=== PATIENT | male | born 1995 | race African-American/Black ===

== ENCOUNTER 2022-03-19 07:40 | Emergency (ER) | payer BC, SELFPAY ==
[2022-03-19 08:15] VITALS: BP 134/85; PULSE 92; RESP 14; TEMP 37; O2SAT 99
[2022-03-19] MEDS: IBUPROFEN 600 MG TABLET PO (08:29)
[2022-03-19] MEDS: ACETAMINOPHEN 325 MG TABLET 650 MG PO (08:30)
--- NOTE | 2022-03-19 08:33 | ED.HA ---
HPI - Headache General Chief Complaint: Headache Stated Complaint: HEADACHE X 3 DAYS/VOMITING/COUGH Time Seen by Provider: 03/19/22 08:33 Source: patient and family History of Present Illness HPI Narrative: Patient presented to the ED with body aches, fever, headache, sore throat, dry cough started 3 days ago,. Intermittent nausea and vomiting. Related Data Allergies Allergy/AdvReac Type Severity Reaction Status Date / Time amoxicillin Allergy Unknown hives Verified 01/08/22 13:24 PENICILLIN Allergy Unknown Uncoded 01/08/22 13:24 Review of Systems Review of Systems: All systems reviewed & are unremarkable except as noted in HPI and below Exam Narrative: General appearance: Well-developed, well-nourished looks ill Skin: Normal color Head: Normocephalic, nontraumatic Eyes: Clear conjunctiva ENT: Oropharynx normal, ears normal, nose normal Neck: Supple, nontender Chest and respiratory: Airway patent, no respiratory distress, no accessory muscle use Heart: Regular rate/rhythm Abdomen: Soft, nontender, no organomegaly, quiet bowel sounds Vascular: Normal peripheral pulses, normal capillary refill. Musculoskeletal: Normal range of motion, nontender back Neurologic: Alert and oriented ?3, [employer] is normal as tested, no gross motor deficit Course Vital Signs Vital signs: Vital Signs Temperature 37.0 C 03/19/22 08:15 Pulse Rate 92 03/19/22 08:15 Respiratory Rate 14 03/19/22 08:15 Blood Pressure 134/85 03/19/22 08:15 Pulse Oximetry 99 03/19/22 08:15 Temperature 37.0 C 03/19/22 08:15 Pulse Rate 92 03/19/22 08:15 Respiratory Rate 14 03/19/22 08:15 Blood Pressure 134/85 03/19/22 08:15 Pulse Oximetry 99 03/19/22 08:15 Oxygen Delivery Room Air 03/19/22 08:35 MDM - Headache Differential Diagnosis Differential diagnosis: Likely other (Upper respiratory viral infection) Lab Data Labs: Lab Results 03/19/22 Range/Units 08:29 Influenza A (RT-PCR) Positive (Negative) Influenza B (RT-PCR) Negative (Negative) SARS-CoV-2 RNA (RT-PCR) Negative Critical Care Time Critical Care Time Critical Care Time: No Discharge Plan Discharge Clinical Impression: Influenza Patient Disposition: Home, Self-Care Condition: Stable Instructions: Antibiotic Form, Influenza (ED) Additional Instructions: Return if symptoms are worsening , call your family physician for appointment, take Tylenol as as needed for aches and pain, continue home medications. Get [id number] TheraFlu Prescriptions: New ondansetron 4 mg tablet,disintegrating 4 mg PO Q4H Qty: 10 0RF Rx Instructions: 1st dose 1-2 hr before radiation Follow-up/Referrals: UNKNOWN,DOCTOR [Primary Care Provider] - Vikas Michael MD [Physician] - 03/24/22 Stand Alone Forms: Work/School Release IP
[2022-03-19 09:12] LABS: Influenza A QL RT-PCR Positive (Negative); Influenza B QL RT-PCR Negative (Negative); SARS-CoV-2 RNA PCR Negative
[2022-03-19 09:53] VITALS: BP 122/83; PULSE 66; RESP 12; O2SAT 99
== END 2022-03-19 09:53 | disposition home or self-care (01) ==
PROVIDERS: Emergency Provider Emergency Medicine
DX: J10.1 Influenza due to other identified influenza virus with other respiratory manifestations (principal); Z20.822 Contact with and (suspected) exposure to COVID-19
CPT/HCPCS: 87636; 99283; A9270

== ENCOUNTER 2022-09-03 12:29 | Emergency (ER) | payer BC, SELFPAY ==
[2022-09-03 12:36] VITALS: BP 146/91; PULSE 57; RESP 16; TEMP 36.6; O2SAT 100
--- NOTE | 2022-09-03 12:45 | ED.URI ---
HPI - URI/Sore Throat General Chief Complaint: Upper Respiratory Infection Stated Complaint: Sore Throat/Cough/Fever Time Seen by Provider: 09/03/22 12:45 Source: patient Mode of arrival: ambulatory Limitations: no limitations History of Present Illness HPI Narrative: Mr. Lemus is a 27-year-old male patient presenting to the clinic today with complaints of sore throat, cough, and fever 2-3 days. He reports he does not know how high his fever has gotten but has felt feverish and has had chills and body aches. States he missed work today and is needing a work note MD elicited complaint: sore throat and nasal congestion Related Data Home Medications Medication Instructions Recorded Confirmed No Home Medications 09/03/22 09/03/22 Allergies Allergy/AdvReac Type Severity Reaction Status Date / Time amoxicillin Allergy Unknown hives Verified 09/03/22 12:32 PENICILLIN Allergy Unknown Other Uncoded 09/03/22 12:32 Review of Systems Review of Systems: Pertinent positives per HPI. Patient denies any rash, headache, visual changes, dizziness, shortness of breath, chest pain, palpitations, nausea, vomiting, diarrhea, constipation, abdominal pain, or any urinary issues. PMFSH Comments At the time of my signature, I reviewed and agree with the nursing past medical, surgical, social, and family history. There is no relevant family history pertinent to the patient complaint. Exam Narrative: General: Well-developed, well nourished, in no apparent distress Head: Normocephalic, atraumatic Eyes: Pupils equally round and reactive to light bilaterally, EOM intact, sclera and conjunctive clear, no discharge, lids normal Ears: TMs intact and clear, ear canals clear, no drainage, grossly hearing normal. Nose: Nares patent, clear nasal discharge, no inflammation, no sinus tenderness. Mouth: Oral pharynx red with mild tonsillar enlargement without lesions or masses, good dentition, MMM. Neck: Supple, trachea midline, no enlargement of anterior or posterior cervical nodes, no thyroid masses or goiter palpable. Cardio: Regular rate and rhythm, s1 and s2 normal, no murmur appreciated. Resp: Clear to auscultation bilaterally, no rhonchi, rales, wheezing or rubs Course Course Emergency Course: Portions of this record may have been created with voice recognition software. Level of Care: Express Care Visit Vital Signs Vital signs: Vital Signs Temperature 36.6 C 09/03/22 12:36 Pulse Rate 57 L 09/03/22 12:36 Respiratory Rate 16 09/03/22 12:36 Blood Pressure 146/91 H 09/03/22 12:36 Pulse Oximetry 100 09/03/22 12:36 Oxygen Delivery Room Air 09/03/22 12:36 Temperature 36.6 C 09/03/22 12:36 Pulse Rate 57 L 09/03/22 12:36 Respiratory Rate 16 09/03/22 12:36 Blood Pressure 146/91 H 09/03/22 12:36 Pulse Oximetry 100 09/03/22 12:36 Oxygen Delivery Room Air 09/03/22 12:36 Vital signs reviewed MDM - URI/Sore Throat MDM Narrative Medical decision making narrative: At the time of visit patient is resting comfortably on the exam table. Strep screen was obtained was negative in the clinic today. Offer to do COVID and influenza testing and patient declined. I suspect patient has URI/pharyngitis/viral syndrome. Supportive measures were discussed with the patient he voiced understanding discharge instructions agrees to treatment plan. Differential Diagnosis Differential diagnosis: Likely upper respiratory infection, otitis media, sinusitis, viral infection, bronchitis, influenza, pharyngitis and other (COVID) Lab Data Labs: Strep Screen Presumptive Negative *(Reference Range: Negative)* Discharge Plan Discharge Clinical Impression: Viral infection Upper respiratory infection Qualifiers: URI type: unspecified URI Qualified Code(s): J06.9 - Acute upper respiratory infection, unspecified Pharyngitis Qualifiers: Pharyngi
== END 2022-09-03 13:08 | disposition home or self-care (01) ==
PROVIDERS: Emergency Provider Nurse Practitioner Family
DX: B34.9 Viral infection, unspecified (principal); J06.9 Acute upper respiratory infection, unspecified; J02.9 Acute pharyngitis, unspecified
CPT/HCPCS: 87081; 87880; 99213; G0463

== ENCOUNTER 2022-10-27 11:53 | Emergency (ER) | payer OTHER, BC, SELFPAY ==
[2022-10-27 12:04] VITALS: BP 140/93; PULSE 62; RESP 16; TEMP 36.7; O2SAT 98
--- NOTE | 2022-10-27 13:24 | ED.BACK ---
HPI - Back Pain/Injury General Chief Complaint: Back Pain/Injury Stated Complaint: back pain Time Seen by Provider: 10/27/22 13:18 Source: patient and RN notes reviewed Mode of arrival: ambulatory Limitations: no limitations History of Present Illness HPI Narrative: Patient presents today complaining of low back pain bilaterally x1 week. 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 Denies radiation of the pain. Denies numbness or tingling in the genitals, legs or feet. Denies loss of bowel or bladder control. Currently rates his pain 5/10, which increases with movement. He has been taking Tylenol with mild relief. Related Data Allergies Allergy/AdvReac Type Severity Reaction Status Date / Time amoxicillin Allergy Unknown hives Verified 10/27/22 11:57 PENICILLIN Allergy Unknown Other Uncoded 10/27/22 11:57 Review of Systems Review of Systems: CONSTITUTIONAL: Denies body aches, fever, chills, or sweats. EYES: Denies visual changes, redness, or discharge. ENT: Denies rhinorrhea, congestion, sore throat, or otalgia. CARDIOVASCULAR: Denies chest pain, palpitations, or edema. RESPIRATORY: Denies cough or dyspnea. GASTROINTESTINAL: Denies abdominal pain, nausea, vomiting, or diarrhea. GENITOURINARY: Denies dysuria or hematuria. SKIN: Denies rash, itching, or wounds. MUSCULOSKELETAL: Denies joint pain, or myalgia.+ low back pain NEUROLOGIC: Denies headache, numbness, tingling, or weakness. PSYCH: Denies depression or anxiety. PMFSH Comments At time of signature, I have reviewed and agree with nursing past medical, surgical, social and family history unless otherwise noted. Please see nursing chart for further information. There is no relevant family history pertinent to the presenting complaint Exam Narrative: GENERAL: Well-appearing, well-nourished, and in no acute distress. HEAD: Normocephalic, atraumatic. EYES: EOMI. No redness or drainage. Conjunctivae normal. ENT: Mucous membranes pink and moist. NECK: Normal AROM. CHEST: No respiratory distress. MUSCULOSKELETAL: Bilateral lumbar paraspinal muscle tenderness. No midline spinal tenderness. No SI joint tenderness bilaterally. Distal sensation intact. Saddle sensation intact. Capillary refill normal. Pedal pulses normal. Dorsiflexion and plantar flexion equal and strong against resistance. EXTREMITIES: Normal range of motion. No edema. SKIN: Warm, dry, no rash. Capillary refill normal. Normal skin turgor. NEURO: No focal deficits. Alert and oriented x3. Gait steady. PSYCH: Normal affect. No signs of depression or anxiety. Course Course Level of Care: Express Care Visit Vital Signs Vital signs: Vital Signs Temperature 98.1 F 10/27/22 12:04 Pulse Rate 62 10/27/22 12:04 Respiratory Rate 16 10/27/22 12:04 Blood Pressure 140/93 H 10/27/22 12:04 Pulse Oximetry 98 10/27/22 12:04 Oxygen Delivery Room Air 10/27/22 12:04 Temperature 98.1 F 10/27/22 12:04 Pulse Rate 62 10/27/22 12:04 Respiratory Rate 16 10/27/22 12:04 Blood Pressure 140/93 H 10/27/22 12:04 Pulse Oximetry 98 10/27/22 12:04 Oxygen Delivery Room Air 10/27/22 12:04 Reviewed. Pt has been instructed to follow up with his PCP regarding his elevated blood pressure today. MDM - Back Pain/Injury MDM Narrative Medical decision making narrative: Patient will be treated for lumbar strain with Flexeril and prednisone. Instructed to take ibuprofen for inflammation. Anticipatory guidance given. Differential Diagnosis Differential diagnosis: Likely lumbar radiculopathy, sciatica and strain of lumbar region Critical Care Time Critical Care Time Critical Care Time: No Discharge Plan Discharge Clinical Impression: Strain of lumbar region Qualifiers: Encounter type: initial encounter Qualified Code(s): S39.012A - Strain of mus
== END 2022-10-27 13:32 | disposition home or self-care (01) ==
PROVIDERS: Emergency Provider Nurse Practitioner; PCP Emergency Medicine
DX: S39.012A Strain of muscle, fascia and tendon of lower back, initial encounter (principal); X50.9XXA Other and unspecified overexertion or strenuous movements or postures, initial encounter
CPT/HCPCS: 99213; G0463

== ENCOUNTER 2022-11-06 16:49 | Emergency (ER) | payer OTHER, BC, SELFPAY ==
--- NOTE | 2022-11-06 16:50 | ED.MALEGU ---
HPI - Male Genitourinary General Chief complaint: Unspecified Stated complaint: Male Problems Time Seen by Provider: 11/06/22 16:50 Source: patient Mode of arrival: ambulatory Limitations: no limitations History of Present Illness HPI Narrative: Mr. Lemus is a 27-year-old male patient presenting to the clinic today with complaints of male problems. He reports he noticed 3 days ago when he was having sex with his girlfriend that when he ejaculated he did not ejaculate as much as normal and it was watery that is not normal for him. He is also reporting some right groin and penile discomfort. No drainage. States he is in a monogamous relationship. His girlfriend is not complaining of any symptoms. He denies any urinary symptoms, fever, or chills Related Data Allergies Allergy/AdvReac Type Severity Reaction Status Date / Time amoxicillin Allergy Unknown hives Verified 11/06/22 17:05 PENICILLIN Allergy Unknown Other Uncoded 11/06/22 17:05 Review of Systems Review of Systems: Pertinent positives per HPI. Patient denies any fever, chills, rash, headache, visual changes, dizziness, cough, runny nose, sore throat, shortness of breath, chest pain, palpitations, nausea, vomiting, diarrhea, constipation, abdominal pain, or any urinary issues. PMFSH Comments At the time of my signature, I reviewed and agree with the nursing past medical, surgical, social, and family history. There is no relevant family history pertinent to the patient complaint. Exam Narrative: General: Well-developed, well nourished, in no apparent distress. Head: Normocephalic, atraumatic. Cardio: Regular rate and rhythm, s1 and s2 normal, no murmur appreciated. Resp: Clear to auscultation bilaterally, no rhonchi, rales, wheezing or rubs. Abdomen: Soft, pliable, bowel sounds present in all quadrants, non-tender to palpation, no organomegly, no CVAT tenderness. : Normal male without corneal adhesions, no penile discharge, urethra mid line, nontender to palpation over the bladder, mild tenderness to the right groin lymph node, no masses or lesions,bilateral testes distended, no discomfort over the testes/vas deferens. Course Course Emergency Course: Portions of this record may have been created with voice recognition software. Level of Care: Express Care Visit Vital Signs Vital signs: Vital Signs Temperature 36.4 C L 11/06/22 17:07 Pulse Rate 70 11/06/22 17:07 Respiratory Rate 16 11/06/22 17:07 Blood Pressure 148/91 H 11/06/22 17:07 Pulse Oximetry 100 11/06/22 17:07 Oxygen Delivery Room Air 11/06/22 17:07 Temperature 36.4 C L 11/06/22 17:07 Pulse Rate 70 11/06/22 17:07 Respiratory Rate 16 11/06/22 17:07 Blood Pressure 148/91 H 11/06/22 17:07 Pulse Oximetry 100 11/06/22 17:07 Oxygen Delivery Room Air 11/06/22 17:07 Vital signs reviewed MDM - Male Genitourinary MDM Narrative Medical decision making narrative: At the time of visit patient is resting comfortably on the exam table. UA dip was completed and was negative- we will send urine for chlamydia, gonorrhea, and Trichomonas testing. Will go ahead and treat patient for STIs as he is requesting treatment in the clinic today. Risk and benefits reviewed with the patient and he voiced understanding. Differential Diagnosis Differential diagnosis: Likely urinary tract infection, urethritis, epididymitis, prostatitis and inguinal hernia Lab Data Labs: Urine Glucose Negative Reference Range: Negative Urine Bilirubin Negative Reference Range: Negative Urine Ketone Negative Reference Range: Negative Urine Specific [place] 1.020 Reference Range:1.001-1.035 Urine Blood
[2022-11-06 17:07] VITALS: BP 148/91; PULSE 70; RESP 16; TEMP 36.4; O2SAT 100
--- NOTE | 2022-11-06 17:16 | PC.NURSE ---
in br to obtain ua spec.
== END 2022-11-06 17:54 | disposition home or self-care (01) ==
LOC: EXPCOLL 16:55
PROVIDERS: Emergency Provider Nurse Practitioner Family; PCP Emergency Medicine
DX: R10.31 Right lower quadrant pain (principal); N48.89 Other specified disorders of penis
CPT/HCPCS: 81003; 87491; 87591; 87661; 99213; G0463

== ENCOUNTER 2022-12-30 18:13 | Emergency (ER) | payer OTHER, BC, SELFPAY ==
[2022-12-30 19:18] VITALS: BP 134/83; PULSE 68; RESP 16; TEMP 36.6; O2SAT 99
--- NOTE | 2022-12-30 20:08 | ED.GENADULT ---
HPI - General Adult General Chief complaint: Nausea/Vomiting/Diarrhea Stated complaint: Vomiting Source: patient Mode of arrival: ambulatory Limitations: no limitations History of Present Illness HPI narrative: patient presents for evaluation of epigastric pain, nausea and vomiting for last 2 days. Reports a burning sensation and some cramping in the epigastric region. He has experienced nausea and diarrhea. His female partner is here with him and states that she has experienced similar symptoms and was actually evaluated here yesterday for her symptoms. He has tried TUMS and states that the medication helps briefly. He reports a sore throat. Denies chest pain, cough and shortness of breath. He consumes a half a beer 2 days per week. He smokes marijuana. He does vape. Related Data Home Medications Medication Instructions Recorded Confirmed amlodipine 10 mg tablet mg 12/30/22 hydrochlorothiazide 25 mg tablet mg 12/30/22 Allergies Allergy/AdvReac Type Severity Reaction Status Date / Time amoxicillin Allergy Unknown hives Verified 12/30/22 19:20 Penicillins Allergy Hives Verified 12/30/22 20:24 Review of Systems Review of Systems: CONSTITUTIONAL: Denies fever, chills, or sweats. EYES: Denies visual changes, redness, or discharge. ENT: Reports sore throat. Denies rhinorrhea, congestion, or otalgia. CARDIOVASCULAR: Denies chest pain, palpitations, or edema. RESPIRATORY: Denies cough or dyspnea. GASTROINTESTINAL: Reports epigastric pain, nausea and diarrhea. Denies vomiting. GENITOURINARY: Denies dysuria or hematuria. SKIN: Denies rash or itching. MUSCULOSKELETAL: Denies back pain, joint pain, or myalgia. NEUROLOGIC: Denies headache, numbness, dizziness, or weakness. PSYCHIATRIC: Denies anxiety or depression. [facility] Past Medical History Medical History Heart murmur Surgical History Surgical History No pertinent past surgical history Family History Family History Mother Family history non-contributory Social History Social History Smoking status: Current every day smoker Tobacco type: e-cigarettes/vaping Alcohol intake: current Alcohol use details: 1/2 beer two days per week Substance use: current Substance use type: marijuana Gender identity (if verbalized by the patient): Male Sexual Orientation (if Verbalized by the Patient): Straight or Heterosexual Spiritual care concerns: No Exam Narrative: GENERAL: Well-appearing, well-nourished, and in no acute distress. HEAD: Normocephalic, atraumatic. EYES: PERRLA and EOMI. ENT: Nares clear, no rhinorrhea or epistaxis. Mucous membranes moist. bilateral tonsillar enlargement with mild erythema. No exudate. Uvula is midline.. Bilateral TMs pearly schmidt nonbulging NECK: Supple. No adenopathy or masses. No carotid bruits or JVD CHEST: Clear to auscultation. No respiratory distress. No wheezes rales or rhonchi HEART: Regular rate and rhythm. No murmur heard. Normal peripheral pulses. ABDOMEN: Soft, nontender, nondistended, normal active bowel sounds. EXTREMITIES: Normal range of motion. No edema. SKIN: Warm, dry, no rash. NEURO: No focal deficits. Alert and oriented x3. PSYCH: Normal mood and affect. Course Course Emergency Course: This is a 27-year-old male who presented for evaluation of GI symptoms consistent with his female partners. He did report a sore throat and strep was obtained as was influenza. Influenza and strep were both negative. Will discharge with Zofran, Cepacol, Pepcid. Follow a bland diet. Follow up with primary provider. Go to the emergency department for worsening symptoms. Patient in agreement with plan of care. Level of Care: Express Care Visit Vital S
== END 2022-12-30 20:33 | disposition home or self-care (01) ==
PROVIDERS: Emergency Provider Nurse Practitioner
DX: K29.70 Gastritis, unspecified, without bleeding (principal); J02.9 Acute pharyngitis, unspecified; F17.219 Nicotine dependence, cigarettes, with unspecified nicotine-induced disorders; Z79.899 Other long term (current) drug therapy
CPT/HCPCS: 87081; 87804; 87880; 99213; G0463

== ENCOUNTER 2023-01-15 11:02 | Emergency (ER) | payer OTHER, BC, SELFPAY ==
--- NOTE | ~2023-01-15 | XR_ITS ---
EXAMINATION: XR abdomen obstructive series DATE: 01/15/2023 11:33 INDICATION: Abdomen pain with diarrhea TECHNIQUE: Supine and upright views of the abdomen. FINDINGS: No prior studies for comparison. The visualized lung parenchyma is normal.. There is a nonobstructive bowel gas pattern. Gas and stool are seen throughout the colon to the level of the rectum. There is no free air. IMPRESSION: 1. No acute abdominal abnormality. Reviewed, dictated and finalized at location L.
--- NOTE | 2023-01-15 11:05 | ED.ABDPAIN ---
HPI - Abdominal Pain General Chief Complaint: Abdominal Pain Stated Complaint: Abdominal Pain Time Seen by Provider: 01/15/23 11:20 Source: patient Mode of arrival: ambulatory Limitations: no limitations History of Present Illness HPI narrative: Elisha is a 27-year-old male patient presenting to the clinic today with complaints of generalized abdominal pain, nausea, and diarrhea. He reports that symptoms started to days ago. Ate some bad [place] food on Thursday and symptoms started on Thursday. He denies any fever or chills. States he is having some incontinence of stools. Related Data Home Medications Medication Instructions Recorded Confirmed amlodipine 10 mg tablet 10 mg PO DAILY 12/30/22 01/15/23 hydrochlorothiazide 25 mg tablet 25 mg PO DAILY 12/30/22 01/15/23 Allergies Allergy/AdvReac Type Severity Reaction Status Date / Time amoxicillin Allergy Unknown hives Verified 01/15/23 11:12 Penicillins Allergy Hives Verified 01/15/23 11:12 Review of Systems Review of Systems: Pertinent positives per HPI. Patient denies any fever, chills, rash, headache, visual changes, dizziness, cough, runny nose, sore throat, shortness of breath, chest pain, palpitations, nausea, vomiting, diarrhea, constipation, abdominal pain, or any urinary issues. [facility] Past Medical History Medical History Heart murmur Surgical History Surgical History No pertinent past surgical history Family History Family History Mother Family history non-contributory Social History Social History Smoking status: Current every day smoker Tobacco type: e-cigarettes/vaping Alcohol intake: current Alcohol use details: 1/2 beer two days per week Substance use: current Substance use type: marijuana Gender identity (if verbalized by the patient): Male Sexual Orientation (if Verbalized by the Patient): Straight or Heterosexual Spiritual care concerns: No Comments At the time of my signature, I reviewed and agree with the nursing past medical, surgical, social, and family history. There is no relevant family history pertinent to the patient complaint. Exam Narrative: General: Well-developed, well nourished, in no apparent distress. Head: Normocephalic, atraumatic. Cardio: Regular rate and rhythm, s1 and s2 normal, no murmur appreciated. Resp: Clear to auscultation bilaterally, no rhonchi, rales, wheezing or rubs. Abdomen: Soft, pliable, bowel sounds present in all quadrants, generalized tender to palpation, no organomegly, no CVAT tenderness. Course Course Emergency Course: Portions of this record may have been created with voice recognition software. Level of Care: Express Care Visit Vital Signs Vital signs: Vital signs reviewed MDM - Abdominal Pain MDM Narrative Medical decision making narrative: At the time of visit patient is resting comfortably on the exam table. Obstructive series x-ray was performed due to patient's incontinence. X-rays negative for any sign of constipation, mass, or obstruction. I suspect patient has gastroenteritis. Supportive measures were discussed with the patient he voiced understanding discharge instructions agrees to treatment plan. Differential Diagnosis Differential diagnosis: Likely abdominal pain, acute appendicitis, calculus of kidney, constipation, diverticulitis, gastroenteritis, pancreatitis and small bowel obstruction Imaging Data Radiologist's impression: ITS Impressions Abdomen X-Ray 01/15/23 11:47 IMPRESSION: 1. No acute abdominal abnormality. Discharge Plan Discharge Clinical Impression: Gastroenteritis Patient Disposition: Home, Self-Care Condition: Stable Instructions: Antibiotic Form, Gastroent
[2023-01-15 11:12] VITALS: BP 121/90; PULSE 67; RESP 16; TEMP 36.9; O2SAT 99
[2023-01-15 11:15] VITALS: BP 121/90; PULSE 67; RESP 16; TEMP 36.9; O2SAT 99
== END 2023-01-15 12:06 | disposition home or self-care (01) ==
PROVIDERS: Emergency Provider Nurse Practitioner Family
DX: K52.9 Noninfective gastroenteritis and colitis, unspecified (principal); F17.219 Nicotine dependence, cigarettes, with unspecified nicotine-induced disorders; Z79.899 Other long term (current) drug therapy
CPT/HCPCS: 74019; 99213; G0463

== ENCOUNTER 2023-02-27 11:30 | Emergency (ER) | payer OTHER, BC, SELFPAY ==
[2023-02-27 11:40] VITALS: BP 125/76; PULSE 53; RESP 14; TEMP 36.3; O2SAT 99
--- NOTE | 2023-02-27 11:47 | ED.LOWEXIN ---
HPI - Extremity Injury (Lower) General Chief Complaint: Extremity Injury, Lower Stated Complaint: Left Leg Pain Time Seen by Provider: 02/27/23 11:36 Source: patient Mode of arrival: ambulatory Limitations: no limitations History of Present Illness HPI Narrative: Miky is a 28-year-old male patient presenting to the clinic today with complaints of left lower leg pain. He reports he was participating and MMA training yesterday and someone fell on to his left lower extremity. He reports pain and some mild swelling. Pain is worse with ambulation/bearing weight. Has a swollen knotted area to the left anterior lower leg Related Data Home Medications Medication Instructions Recorded Confirmed amlodipine 10 mg tablet 10 mg PO DAILY 12/30/22 02/27/23 hydrochlorothiazide 25 mg tablet 25 mg PO DAILY 12/30/22 02/27/23 Allergies Allergy/AdvReac Type Severity Reaction Status Date / Time amoxicillin Allergy Unknown hives Verified 02/27/23 11:38 Penicillins Allergy Hives Verified 02/27/23 11:38 Review of Systems Review of Systems: Pertinent positives per HPI. Patient denies any fever, chills, rash, headache, visual changes, dizziness, cough, runny nose, sore throat, shortness of breath, chest pain, palpitations, nausea, vomiting, diarrhea, constipation, abdominal pain, or any urinary issues. [facility] Past Medical History Medical History Heart murmur Surgical History Surgical History No pertinent past surgical history Family History Family History Mother Family history non-contributory Social History Social History Smoking status: Current every day smoker Tobacco type: e-cigarettes/vaping Alcohol intake: current Alcohol use details: 1/2 beer two days per week Substance use: current Substance use type: marijuana Gender identity (if verbalized by the patient): Male Sexual Orientation (if Verbalized by the Patient): Straight or Heterosexual Spiritual care concerns: No Comments At the time of my signature, I reviewed and agree with the nursing past medical, surgical, social, and family history. There is no relevant family history pertinent to the patient complaint. Exam Narrative: General: Well-developed, well nourished, in no apparent distress Head: Normocephalic, atraumatic. Cardio: Regular rate and rhythm, s1 and s2 normal, no murmur appreciated. Resp: Clear to auscultation bilaterally, no rhonchi, rales, wheezing or rubs. Musculoskeletal: No deformity, tender to palpation to the left lower leg with mild swelling and knotted area noted, tender to palpate, grossly normal range of motion, muscle strength strong and equal, peripheral pulse strong, no edema, no cyanosis, normal gait and station Course Course Emergency Course: Portions of this record may have been created with voice recognition software. Level of Care: Express Care Visit Vital Signs Vital signs: Vital Signs Temperature 36.3 C L 02/27/23 11:40 Pulse Rate 53 L 02/27/23 11:40 Respiratory Rate 14 02/27/23 11:40 Blood Pressure 125/76 02/27/23 11:40 Pulse Oximetry 99 02/27/23 11:40 Oxygen Delivery Room Air 02/27/23 11:40 Temperature 36.3 C L 02/27/23 11:40 Pulse Rate 53 L 02/27/23 11:40 Respiratory Rate 14 02/27/23 11:40 Blood Pressure 125/76 02/27/23 11:40 Pulse Oximetry 99 02/27/23 11:40 Oxygen Delivery Room Air 02/27/23 11:40 Vital signs reviewed MDM - Extremity Injury (Lower) MDM Narrative Medical decision making narrative: At the time of visit patient is resting comfortably on the exam table. Offered x-ray and patient declined at this time. Patient would like work note. i suspect patient has a leg contusion to the left lower extremity. [facility]
== END 2023-02-27 11:59 | disposition home or self-care (01) ==
PROVIDERS: Emergency Provider Nurse Practitioner Family; PCP Emergency Medicine
DX: S80.12XA Contusion of left lower leg, initial encounter (principal); W50.0XXA Accidental hit or strike by another person, initial encounter; Y93.75 Activity, martial arts; R01.1 Cardiac murmur, unspecified; F17.290 Nicotine dependence, other tobacco product, uncomplicated
CPT/HCPCS: 99212; G0463

== ENCOUNTER 2023-06-13 15:14 | Emergency (ER) | payer OTHER, SELFPAY ==
[2023-06-13 15:24] VITALS: BP 143/92; PULSE 55; RESP 16; TEMP 36.3; O2SAT 99
[2023-06-13 15:25] VITALS: BP 143/92; PULSE 55; RESP 16; TEMP 36.3; O2SAT 99
--- NOTE | 2023-06-13 15:39 | ED.NAVMDI ---
HPI - Nausea/Vomiting/Diarrhea General Chief complaint: Nausea/Vomiting/Diarrhea Stated complaint: Vomiting Time Seen by Provider: 06/13/23 15:40 Source: patient Mode of arrival: ambulatory Limitations: no limitations History of Present Illness HPI Narrative: 28-year-old male presents with complaint of nausea, vomiting, diarrhea, fatigue and body aches starting last night. Patient reports that he has had 3 episodes of diarrhea and has vomited 4 times. Was able to keep down crackers but unable to keep down water. Afebrile. Denies abdominal pain. All systems reviewed and negative except as noted above. Related Data Allergies Allergy/AdvReac Type Severity Reaction Status Date / Time amoxicillin Allergy Unknown hives Verified 02/27/23 11:38 Penicillins Allergy Hives Verified 02/27/23 11:38 Review of Systems Review of Systems: CONSTITUTIONAL: Denies fever, chills, or sweats. EYES: Denies visual changes, redness, or discharge. ENT: Denies rhinorrhea, congestion, sore throat, or otalgia. CARDIOVASCULAR: Denies chest pain, palpitations, or edema. RESPIRATORY: Denies cough or dyspnea. GASTROINTESTINAL: Denies abdominal pain . Reports nausea, vomiting, or diarrhea. GENITOURINARY: Denies dysuria or hematuria. SKIN: Denies rash or itching. MUSCULOSKELETAL: Denies back pain, joint pain. Reports myalgia. NEUROLOGIC: Denies headache, numbness, or weakness. PSYCHIATRIC: Denies anxiety or depression. All other systems reviewed are negative, except as documented in HPI. [facility] Past Medical History Medical History Heart murmur Surgical History Surgical History No pertinent past surgical history Family History Family History Mother Family history non-contributory Social History Social History Smoking status: Current every day smoker Tobacco type: e-cigarettes/vaping Alcohol intake: current Alcohol use details: 1/2 beer two days per week Substance use: current Substance use type: marijuana Gender identity (if verbalized by the patient): Male Sexual Orientation (if Verbalized by the Patient): Straight or Heterosexual Spiritual care concerns: No Comments At time of signature, agree with nursing past medical, surgical, social and family history. There is no relevant family history pertinent to the presenting complaint. Exam Narrative: GENERAL: This is a well-nourished, well-developed patient, in no apparent distress. HEAD: normocephalic, atraumatic. EYES: PERRL. Sclera clear/white. Vision is grossly intact. EARS: External ears normal NOSE: External nose normal NECK: Neck supple, non-tender without lymphadenopathy, masses or thyromegaly. CARDIOVASCULAR: Regular rate and rhythm without murmurs, gallops, or rubs. RESPIRATORY: Clear to auscultation. Breath sounds equal bilaterally. No wheezes, rales, or rhonchi. GASTROINTESTINAL: Abdomen soft, non-tender, nondistended. Bowel sounds are active. No hepato-splenomegaly, or palpable masses. No guarding. SKIN: warm, Dry, intact with no suspicious lesions or rash, good texture and turgor. NEURO: awake, alert, and oriented to person, place and time. There were no obvious focal neurologic abnormalities. EXTREMITIES: No joint tenderness, effusion, or edema noted. Course Course Level of Care: Express Care Visit Vital Signs Vital signs: Vital Signs Temperature 36.3 C L 06/13/23 15:24 Pulse Rate 55 L 06/13/23 15:24 Respiratory Rate 16 06/13/23 15:24 Blood Pressure 143/92 H 06/13/23 15:24 Pulse Oximetry 99 06/13/23 15:24 Oxygen Delivery Room Air 06/13/23 15:24 Temperature 36.3 C L 06/13/23 15:25 Pulse Rate 55 L 06/13/23 15:25 Respiratory Rate 16 06/13/23 15:25 Blood Pressure 143/92 H 05/22
== END 2023-06-13 15:55 | disposition home or self-care (01) ==
PROVIDERS: Emergency Provider Nurse Practitioner Family; PCP Emergency Medicine
DX: A08.4 Viral intestinal infection, unspecified (principal); F17.290 Nicotine dependence, other tobacco product, uncomplicated; R01.1 Cardiac murmur, unspecified
CPT/HCPCS: 99213; G0463

== ENCOUNTER 2023-08-11 05:22 | Emergency (ER) | payer MEDICAID, SELFPAY ==
[2023-08-11 05:22] VITALS: BP 156/82; PULSE 57; RESP 16; TEMP 36.6; O2SAT 100
--- NOTE | 2023-08-11 05:36 | ED.GENADULT ---
HPI - General Adult General Chief complaint: Dental/Oral Stated complaint: tooth ache Time Seen by Provider: 08/11/23 05:28 History of Present Illness HPI narrative: Patient is a 28-year-old gentleman who presents emergency department with chief complaint of pain in the wisdom teeth on the left side. The patient reports that he was seen in the dentist had plaques great and reports that started having pain in the lower post back molar on his left mandible patient states that he was referred to an oral surgeon but is not on antibiotics and Tylenol was not helping his pain. The patient denies fever denies trismus Related Data Allergies Allergy/AdvReac Type Severity Reaction Status Date / Time amoxicillin Allergy Unknown hives Verified 08/11/23 05:29 Penicillins Allergy Hives Verified 08/11/23 05:29 Review of Systems Review of Systems: A 10 system review of systems was completed on the patient and is negative except for what is stated in the HPI. Nursing and ancillary documentation was reviewed. PMFSH Past Medical History Medical History Heart murmur Surgical History Surgical History No pertinent past surgical history Family History Family History Mother Family history non-contributory Social History Social History Smoking status: Current every day smoker Tobacco type: e-cigarettes/vaping Alcohol intake: current Alcohol use details: 1/2 beer two days per week Substance use: current Substance use type: marijuana Gender identity (if verbalized by the patient): Male Sexual Orientation (if Verbalized by the Patient): Straight or Heterosexual Spiritual care concerns: No Exam Narrative: GENERAL: Well-appearing, well-nourished, and in no acute distress. HEAD: Normocephalic, atraumatic. EYES: PERRLA and EOMI. ENT: Nares clear, no rhinorrhea or epistaxis. Mucous membranes moist. There is an impacted wisdom tooth on the left lower mandible there is tenderness to palpation in the area NECK: Supple. CHEST: Clear to auscultation. No respiratory distress. HEART: Regular rate and rhythm. No murmur heard. Normal peripheral pulses. ABDOMEN: Soft, nontender, nondistended, normal active bowel sounds. EXTREMITIES: Normal range of motion. No edema. SKIN: Warm, dry, no rash. NEURO: No focal deficits. Alert and oriented x3. PSYCH: Normal mood and affect. Course Vital Signs Vital signs: Vital Signs Temperature 36.6 C 08/11/23 05:22 Pulse Rate 57 L 08/11/23 05:22 Respiratory Rate 16 08/11/23 05:22 Blood Pressure 156/82 H 08/11/23 05:22 Pulse Oximetry 100 08/11/23 05:22 Oxygen Delivery Room Air 08/11/23 05:22 Temperature 36.6 C 08/11/23 05:22 Pulse Rate 57 L 08/11/23 05:22 Respiratory Rate 16 08/11/23 05:22 Blood Pressure 156/82 H 08/11/23 05:22 Pulse Oximetry 100 08/11/23 05:22 Oxygen Delivery Room Air 08/11/23 05:22 Procedures Nerve Block Nerve Block 1: Local Anesthetic: lidocaine 1% Amount of anesthesia used (mL): 2 Side: left Intraoral Nerve Block: supraperiosteal Procedure Successful: Yes Patient Tolerated Procedure: well Complications: none Medical Decision Making MDM Narrative Medical decision making narrative: Differential diagnosis mode otalgia, dental caries, dental abscess Vital Signs Vital Signs: Vital Signs Temperature 36.6 C 08/11/23 05:22 Pulse Rate 57 L 08/11/23 05:22 Respiratory Rate 16 08/11/23 05:22 Blood Pressure 156/82 H 08/11/23 05:22 Pulse Oximetry 100 08/11/23 05:22 Oxygen Delivery Room Air 08/11/23 05:22 Temperature 36.6 C 08/11/23 05:22 Pulse Rate 57 L 08/11/23 05:22 Respiratory Rate 16
[2023-08-11] MEDS: CLINDAMYCIN HCL 150 MG CAP 300 MG PO (05:49)
[2023-08-11] MEDS: HYDROcodone/acetaminophen (*CRX) 5-325 MG TABLET 1 TAB PO (05:50)
== END 2023-08-11 06:00 | disposition home or self-care (01) ==
LOC: ANHED 05:40
PROVIDERS: Emergency Provider Emergency Medicine
DX: K02.9 Dental caries, unspecified (principal); F17.210 Nicotine dependence, cigarettes, uncomplicated
CPT/HCPCS: 41800; 99283; A9270

== ENCOUNTER 2023-08-14 06:22 | Emergency (ER) | payer MEDICAID, SELFPAY ==
[2023-08-14 06:27] VITALS: BP 145/90; PULSE 62; RESP 18; TEMP 36.4; O2SAT 100
[2023-08-14 06:34] VITALS: BP 145/90; PULSE 62; RESP 18; TEMP 36.4; O2SAT 100
--- NOTE | 2023-08-14 07:22 | ED.DENTAL ---
HPI - Dental/Oral General Chief complaint: Dental/Oral Stated complaint: dental Time Seen by Provider: 08/14/23 07:00 Source: patient Mode of arrival: ambulatory Limitations: no limitations History of Present Illness HPI Narrative: patient presents with left lower wisdom tooth pain. he has a broken tooth at this position. He was seen on 08/11/2023 for the same and at that time was prescribed clindamycin, a 10 day course. He reports taking this. He has been using [id number] ibuprofen, taking 3 200 mg tablets every 6 hours. No fevers. he has an appointment to see a dentist at the end of the month but the pain is causing sleep Disruption. Related Data Allergies Allergy/AdvReac Type Severity Reaction Status Date / Time amoxicillin Allergy Unknown hives Verified 08/14/23 06:30 Penicillins Allergy Hives Verified 08/14/23 06:30 PMFSH Past Medical History Medical History Heart murmur Surgical History Surgical History No pertinent past surgical history Family History Family History Mother Family history non-contributory Social History Social History Smoking status: Current every day smoker Tobacco type: e-cigarettes/vaping Alcohol intake: current Alcohol use details: 1/2 beer two days per week Substance use: current Substance use type: marijuana Gender identity (if verbalized by the patient): Male Sexual Orientation (if Verbalized by the Patient): Straight or Heterosexual Spiritual care concerns: No Exam Narrative: GENERAL: Well-appearing, well-nourished, and in no acute distress. HEAD: Normocephalic, atraumatic. no facial swelling or induration EYES: Non injected, non icteric ENT: Nares clear, no rhinorrhea or epistaxis. tooth 17. Is broken. Tender to percussion. Mild tenderness to palpation of gingiva/ gums surrounding this area but otherwise without appreciable abscess. No fluctuance or induration buccal mucosa or the rest of the cheek. NECK: Supple. CHEST: Speaking full sentences. No respiratory distress. HEART: Regular rate and rhythm. . ABDOMEN: Soft, nondistended. EXTREMITIES: Normal range of motion. No edema. SKIN: Warm, dry, no rash. NEURO: No focal deficits. Alert and oriented x3. PSYCH: Normal mood and affect. Course Vital Signs Vital signs: Vital Signs Temperature 97.5 F L 08/14/23 06:27 Pulse Rate 62 08/14/23 06:27 Respiratory Rate 18 08/14/23 06:27 Blood Pressure 145/90 H 08/14/23 06:27 Pulse Oximetry 100 08/14/23 06:27 Oxygen Delivery Room Air 08/14/23 06:27 Temperature 97.5 F L 08/14/23 06:34 Pulse Rate 62 08/14/23 06:34 Respiratory Rate 18 08/14/23 06:34 Blood Pressure 145/90 H 08/14/23 06:34 Pulse Oximetry 100 08/14/23 06:34 Oxygen Delivery Room Air 08/14/23 06:27 Procedures Nerve Block Nerve Block 1: Nerve block date: 08/14/23 Nerve block time: 07:48 Time out performed: Yes Local Anesthetic: lidocaine 1% Amount of anesthesia used (mL): 5 Side: left Intraoral Nerve Block: inferior alveolar Procedure Successful: Yes Patient Tolerated Procedure: well Complications: none MDM - Dental/Oral MDM Narrative Medical decision making narrative: Patient presents with tooth pain. seen for the same 3 days ago and prescribed antibiotics which he has been taking In the emergency department he is afebrile with vital signs notable for mild hypertension. physical exam is reassuring without appreciable swelling or abscess is dental zan broken tooth at position 17. Patient is advised that can add acetaminophen to his pain regimen ibuprofen currently. He will also be short course narcotic medication the dis
[2023-08-14] MEDS: HYDROcodone/acetaminophen (*CRX) 5-325 MG TABLET 1 TAB PO (07:41)
[2023-08-14] MEDS: ACETAMINOPHEN 325 MG TABLET 650 MG PO (07:42)
== END 2023-08-14 08:13 | disposition home or self-care (01) ==
PROVIDERS: Emergency Provider Student in an Organized Health Care Education/Training Program
DX: S02.5XXA Fracture of tooth (traumatic), initial encounter for closed fracture (principal); K08.89 Other specified disorders of teeth and supporting structures; F17.290 Nicotine dependence, other tobacco product, uncomplicated
CPT/HCPCS: 64999; 99283; A9270

== ENCOUNTER 2024-05-04 13:35 | Emergency (ER) | payer SELFPAY ==
--- NOTE | ~2024-05-04 | XR_ITS ---
EXAMINATION: XR chest 2V 05/04/2024 14:12 INDICATION: Chest pain PROCEDURE: 2 view chest COMPARISON: 04/27/2024 FINDINGS: The lungs are clear. The cardiomediastinal silhouette is within normal limits. There are no pleural effusions. There is no pneumothorax suspected. IMPRESSION: 1: NO ACUTE CARDIOPULMONARY DISEASE. Reviewed, dictated and finalized at location A. [facility] MDM DEVELOPER
[2024-05-04 13:37] VITALS: BP 128/90; PULSE 80; RESP 17; TEMP 36.4; O2SAT 100
--- NOTE | 2024-05-04 13:37 | ECG_ITS ---
Test Date: 2024-05-04 13:44:14 Measurements Intervals [place] Rate: 79 P: 51 FL: 155 QRS: -37 QRSD: 102 T: -29 QT: 354 QTc: 407 Interpretive Statements SINUS RHYTHM MARKED LEFT AXIS DEVIATION [QRS AXIS < -30] INCOMPLETE RIGHT BUNDLE BRANCH BLOCK [90+ ms QRS DURATION, TERMINAL R IN V1/V2, 40+ ms S IN I/aVL/V4/V5/V6] MODERATE VOLTAGE CRITERIA FOR LVH, CONSIDER NORMAL VARIANT [MEETS CRITERIA IN ONE OF: R(aVL), S(V1), R(V5), R(V5/V6)+S(V1)] T-WAVE ABNORMALITY IN THE INFEROLATERAL LEADS Compared to ECG 04/27/2024 09:58:34 IMPROVEMENT IN T-WAVE ABNORMALITY IN THE INFERIOR LEADS, T WAVE ABNORMALITY NOW PRESENT IN THE LATERAL LEADS Electronically Signed On 05-04-2024 14:39:05 FEED RESEARCH TECHNICIAN by Christine Houser M.D.
--- NOTE | 2024-05-04 13:40 | ED_ITS ---
HPI - Chest Pain General Chief Complaint: Chest Pain <Yesenia iRco PA-C - Last Filed: 05/04/24 13:42> Stated Complaint: chest pain <Yesenia Rico PA-C - Last Filed: 05/04/24 13:42> Time Seen by Provider: 05/04/24 13:59 <Yesenia Rico PA-C - Last Filed: 05/04/24 13:42> Focused HPI: 29-year-old male with reported history of ?fatty heart valve? presents to the emergency department for chest pain that started just prior to arrival. Patient states he was sleeping when he woke up with chest pain this started on the left side of the chest, radiated across the chest wall and down his right arm with associated shortness of breath, palpitations, sweating and nausea. States the pain lasted approximately 15 minutes and is now resolved. States this has been happening more frequently over the past few weeks. He states he follows with a tentering machine off bearer at [place] for his ?fatty heart valve?. He most recently the stress test a few years ago which was unremarkable. States he is scheduled for his upcoming stress test in 1 week. No abdominal pain, cough or congestion, fever, lower extremity edema, hemoptysis, history of VTE. Denies smoking. States his mother from cardiac history. GENERAL: Well-appearing, well-nourished, and in no acute distress. HEAD: Normocephalic, atraumatic. CHEST: Clear to auscultation. ?No respiratory distress. HEART: Regular rate and rhythm.? NEURO: ?Alert and oriented x3. Patient screened in triage and initial orders placed.? ?Additional care and disposition to be based upon?diagnostic testing and treatment. <Yesenia Rico PA-C - Last Filed: 05/04/24 13:42> Source: patient <eJovanny Pike MD - Last Filed: 05/04/24 17:48> Mode of arrival: EMS <Jeovanny Pike MD - Last Filed: 05/04/24 17:48> Limitations: no limitations <Jeovanny Pike MD - Last Filed: 05/04/24 17:48> History of Present Illness HPI narrative: 29-year-old with a history of heart murmur, possible valve prolapse and fatty valve complains of sudden onset of chest pain. Patient states that he woke up with the pain radiating into his left arm then across his chest into his right arm. Patient states that he is scheduled for stress test next wk in [place] . He endorses Dr. Joya as his tentering machine off bearer . He denies any shortness of breath. However by the time he got to the ER his pain is much resolved stated the pain lasted for 15 minutes or so. No previous history of CAD. <Jeovanny Pike MD - Last Filed: 05/04/24 17:48> MD complaint: chest pain <Jeovanny Pike MD - Last Filed: 05/04/24 17:48> Onset (ago): hour(s) (1) <Jeovanny Pike MD - Last Filed: 05/04/24 17:48> Onset: during rest <Jeovanny Pike MD - Last Filed: 05/04/24 17:48> Pain location: left chest <Jeovanny Pike MD - Last Filed: 05/04/24 17:48> Pain radiation: right arm and left arm <Jeovanny Pike MD - Last Filed: 05/04/24 17:48> Severity: moderate <Jeovanny Pike MD - Last Filed: 05/04/24 17:48> Quality: aching <Jeovanny Pike MD - Last Filed: 05/04/24 17:48> Relieving factors: nothing <Jeovanny Pike MD - Last Filed: 05/04/24 17:48> Exacerbating factors: nothing <Jeovanny Pike MD - Last Filed: 05/04/24 17:48> Treatment prior to arrival: none <Jeovanny Pike MD - Last Filed: 05/04/24 17:48> Risk Factors Coronary artery disease risk factors: none <MD Varsha Diaz Last Filed: 05/04/24 17:48> Related Data Home Medications: Home Medications ?Medication ?Instructions ?Recorded ?Confirmed ?Last Taken ?Type hydrochlorothiazide 25 mg tablet 25 mg PO DAILY 04/27/24 04/27/24 Unknown History lisinopril 20 mg tablet 20 mg PO DAILY 04/27/24 04/27/24 Unknown History <Yesenia Rico PA-C - Last Filed: 05/04/24 13:42> Allergies/Adverse Reactions: Allergies Allergy/AdvReac Type Severity Reaction Status Date / Time amoxicillin Allergy Unknown hives Verified 05/04/24 13:36 Penicillins Allergy Hives Verified 05/04/24 13:36 <Yesenia Rico PA-C - Last Filed: 05/04/24 13:42> Review of Systems 2 Review of Systems: All systems reviewed & are unremarkable except as noted in HPI and below <Jeovanny Pike MD - Last Filed: 05/04/24 17:48> Constitutional: Constitutional: Reports no additional constitutional complaints <Jeovanny Pike MD - Last Filed: 05/04/24 17:48> Eyes: Eyes: Reports no additional eye complaints <Jeovanny Pike MD - Last Filed: 05/04/24 17:48> ENT: Reports system reviewed and no additional complaints, except as documented <Jeovanny Pike MD - Last Filed: 05/04/24 17:48> Cardiovascular: Cardiovascular: Reports as per HPI and Reports no additional cardiovascular complaints <Jeovanny Pike MD - Last Filed: 05/04/24 17:48> Respiratory: Respiratory: Reports no additional respiratory complaints < Jeovanny Pike MD - Last Filed: 05/04/24 17:48> Musculoskeletal: Musculoskeletal: Reports no additional musculoskeletal complaints <Jeovanny Pike MD - Last Filed: 05/04/24 17:48> Integumentary/Breasts: Skin/Breast: Reports system reviewed and no additional complaints, except as docu <Jeovanny Pike MD - Last Filed: 05/04/24 17:48> PMFSH Past Medical History Medical History: Medical History Heart murmur <Yesenia Rico PA-C - Last Filed: 05/04/24 13:42> Surgical History Surgical History: Surgical History No pertinent past surgical history <Yesenia Rico PA-C - Last Filed: 05/04/24 13:42> Family History Family History: Family History Mother Family history non-contributory <Yesenia Rico PA-C - Last Filed: 05/04/24 13:42> Social History Social History: Social History Smoking status: Current every day smoker Tobacco type: e-cigarettes/vaping Alcohol intake: current Alcohol use details: 1/2 beer two days per week Substance use: current Substance use type: marijuana Gender identity (if verbalized by the patient): Male Sexual Orientation (if Verbalized by the Patient): Straight or Heterosexual Spiritual care concerns: No <Yesenia Rico PA-C - Last Filed: 05/04/24 13:42> Exam 2 Narrative: GENERAL: Well-appearing, well-nourished, and in no acute distress. HEAD: Normocephalic, atraumatic. EYES: PERRLA and EOMI. ENT: Nares clear, no rhinorrhea or epistaxis. Mucous membranes moist. NECK: Supple. CHEST: Clear to auscultation. No respiratory distress. HEART: Regular rate and rhythm. No murmur heard. Normal peripheral pulses. ABDOMEN: Soft, nontender, nondistended, normal active bowel sounds. EXTREMITIES: Normal range of motion. No edema. SKIN: Warm, dry, no rash. NEURO: No focal deficits. Alert and oriented x3. PSYCH: Normal mood and affect. <Jeovanny Pike MD - Last Filed: 05/04/24 17:48> Course Course Emergency Course: Patient had no further episodes of chest pain while he was here in the ER. He was comfortably resting with his girlfriend on his bed. I did inform him about the lab work, EKG findings. Recommended him to follow up with his tentering machine off bearer. <Jeovanny Pike MD - Last Filed: 05/04/24 17:48> Vital Signs Vital signs: Vital Signs Temperature 36.4 C 05/04/24 13:37 Pulse Rate 80 05/04/24 13:37 Respiratory Rate 17 05/04/24 13:37 Blood Pressure 128/90 05/04/24 13:37 Pulse Oximetry 100 05/04/24 13:37 Oxygen Delivery Room Air 05/04/24 13:37 Temperature 36.6 C 05/04/24 16:55 Pulse Rate 68 05/04/24 16:55 Respiratory Rate 16 05/04/24 16:55 Blood Pressure 126/80 05/04/24 16:55 Pulse Oximetry 100 05/04/24 16:55 Oxygen Delivery Room Air 05/04/24 15:11 <Yesenia Rico PA-C - Last Filed: 05/04/24 13:42> Vital Signs Temperature 36.4 C 05/04/24 13:37 Pulse Rate 80 05/04/24 13:37 Respiratory Rate 17 05/04/24 13:37 Blood Pressure 128/90 05/04/24 13:37 Pulse Oximetry 100 05/04/24 13:37 Oxygen Delivery Room Air 05/04/24 13:37 Temperature 36.6 C 05/04/24 16:55 Pulse Rate 68 05/04/24 16:55 Respiratory Rate 16 05/04/24 16:55 Blood Pressure 126/80 05/04/24 16:55 Pulse Oximetry 100 05/04/24 16:55 Oxygen Delivery Room Air 05/04/24 15:11 <Jeovanny Pike MD - Last Filed: 05/04/24 17:48> MDM - Chest Pain Differential Diagnosis Differential diagnosis: Likely pneumothorax, stable angina, atypical chest pain and costochondritis <Jeovanny Pike MD - Last Filed: 05/04/24 17:48> Medical Records Data Attestation: I reviewed the patient's medical records. <Jeovanny Pike MD - Last Filed: 05/04/24 17:48> Lab Data Attestation: I reviewed the patient's lab results. <Jeovanny Pike MD - Last Filed: 05/04/24 17:48> Result diagrams: 05/04/24 13:51 05/04/24 13:51 <Yesenia Rico PA-C - Last Filed: 05/04/24 13:42> Labs: Lab Results 05/04/24 05/04/24 05/04/24 Range/Units 13:51 13:51 16:28 WBC 6.7 (4.5-10.0) K/mm3 RBC 5.03 (4.6-6.20) M/mm3 Hgb 15.8 (14.0-18.0) g/dL Hct 45.2 (42.0-52.0) % MCV 89.9 (80-100) fl MCH 31.4 (26-34) pg MCHC 35.0 (32-36) g/dl RDW 12.5 (11.5-14.5) % Plt Count 264 (150-375) k/mm3 MPV 9.1 (7.4-10.4) fl Immature Gran % (Auto) 0.0 (0-0.5) % Neut % (Auto) 30.6 L (45.5-73.1) % Lymph % (Auto) 57.7 H (18.3-44.2) % [place] % (Auto) 8.6 H (2.6-8.5) % Eos % (Auto) 2.1 (0-4.4) % Baso % (Auto) 1.0 (0.2-1.2) % Lymph # (Auto) 3.89 H (0.9-3.2) K/mm3 [place] # (Auto) 0.6 (0.1-0.6) K/mm3 Eos # (Auto) 0.1 (0-0.3) K/mm3 Baso # (Auto) 0.1 (0.0-0.1) K/mm3 Abs Immat Gran (auto) 0.00 (0.00-0.031) K/mm3 Absolute Neuts (auto) 2.1 (1.3-6.7) K/mm3 Absolute Nucleated RBC 0.000 (0.0-0.012) K/mm3 Nucleated RBC % 0.0 (0.0-0.2) % PT 13.2 (11.1-14.7) Seconds INR 1.0 APTT 27.5 (22.3-36.8) Seconds Sodium 137 (137-145) mmol/L Potassium 3.7 (3.4-5.0) mmol/L Chloride 104 (98-107) mmol/L Carbon Dioxide 21 L (22-30) mmol/L Anion Gap 12 (4-12) mmol/L BUN 12 (9-20) mg/dL Creatinine 1.26 (0.7-1.3) mg/dL Estim Creat Clear Calc 100 ml/min Estimated GFR > 60 (59 - ) Glucose 116 H (65-110) mg/dL Calcium 9.7 (8.4-10.2) mg/dL Total Bilirubin 1.1 (0.2-1.3) mg/dL AST 32 (17-59) U/L ALT 22 (6-50) U/L Alkaline Phosphatase 67 (38-126) U/L Troponin I < 0.012 < 0.012 (0.000-0.034) ng/mL NT-Pro-B Natriuret Pep < 20 Cancelled (19.9-100) pg/mL Total Protein 8.0 (6.3-8.2) g/dL Albumin 4.8 (3.5-5.1) g/dL Lipase 68 (23-300) U/L <Yesenia Rico PA-C - Last Filed: 05/04/24 13:42> Lab Results 05/04/24 05/04/24 05/04/24 Range/Units 13:51 13:51 16:28 WBC 6.7 (4.5-10.0) K/mm3 RBC 5.03 (4.6-6.20) M/mm3 Hgb 15.8 (14.0-18.0) g/dL Hct 45.2 (42.0-52.0) % MCV 89.9 (80-100) fl MCH 31.4 (26-34) pg MCHC 35.0 (32-36) g/dl RDW 12.5 (11.5-14.5) % Plt Count 264 (150-375) k/mm3 MPV 9.1 (7.4-10.4) fl Immature Gran % (Auto) 0.0 (0-0.5) % Neut % (Auto) 30.6 L (45.5-73.1) % Lymph % (Auto) 57.7 H (18.3-44.2) % [place] % (Auto) 8.6 H (2.6-8.5) % Eos % (Auto) 2.1 (0-4.4) % Baso % (Auto) 1.0 (0.2-1.2) % Lymph # (Auto) 3.89 H (0.9-3.2) K/mm3 [place] # (Auto) 0.6 (0.1-0.6) K/mm3 Eos # (Auto) 0.1 (0-0.3) K/mm3 Baso # (Auto) 0.1 (0.0-0.1) K/mm3 Abs Immat Gran (auto) 0.00 (0.00-0.031) K/mm3 Absolute Neuts (auto) 2.1 (1.3-6.7) K/mm3 Absolute Nucleated RBC 0.000 (0.0-0.012) K/mm3 Nucleated RBC % 0.0 (0.0-0.2) % PT 13.2 (11.1-14.7) Seconds INR 1.0 APTT 27.5 (22.3-36.8) Seconds Sodium 137 (137-145) mmol/L Potassium 3.7 (3.4-5.0) mmol/L Chloride 104 (98-107) mmol/L Carbon Dioxide 21 L (22-30) mmol/L Anion Gap 12 (4-12) mmol/L BUN 12 (9-20) mg/dL Creatinine 1.26 (0.7-1.3) mg/dL Estim Creat Clear Calc 100 ml/min Estimated GFR > 60 (59 - ) Glucose 116 H (65-110) mg/dL Calcium 9.7 (8.4-10.2) mg/dL Total Bilirubin 1.1 (0.2-1.3) mg/dL AST 32 (17-59) U/L ALT 22 (6-50) U/L Alkaline Phosphatase 67 (38-126) U/L Troponin I < 0.012 < 0.012 (0.000-0.034) ng/mL NT-Pro-B Natriuret Pep < 20 Cancelled (19.9-100) pg/mL Total Protein 8.0 (6.3-8.2) g/dL Albumin 4.8 (3.5-5.1) g/dL Lipase 68 (23-300) U/L <Jeovanny Pike MD - Last Filed: 05/04/24 17:48> Imaging Data Radiologist's impression: ITS Impressions Chest X-Ray 05/04/24 14:19 IMPRESSION: 1: NO ACUTE CARDIOPULMONARY DISEASE. <Jeovanny Pike MD - Last Filed: 05/04/24 17:48> ECG Data EKG #1: ECG completion date: 05/04/24 <Jeovanny Pike MD - Last Filed: 05/04/24 17:48> ECG completion time: 13:44 <Jeovanny Pike MD - Last Filed: 05/04/24 17:48> EKG Interpretation: normal rate (79), sinus rhythm, no ST changes, left axis and other (Incomplete right bundle LVH by voltage criteria) <Jeovanny Pike MD - Last Filed: 05/04/24 17:48> EKG #2: ECG completion date: 05/04/24 <Jeovanny Pike MD - Last Filed: 05/04/24 17:48> ECG completion time: 16:31 <Jeovanny Pike MD - Last Filed: 05/04/24 17:48> EKG Interpretation: normal rate (63), sinus rhythm, no ST changes and no acute changes < Jeovanny Pike MD - Last Filed: 05/04/24 17:48> Discharge Plan Discharge Clinical Impression: Chest pain Qualifiers: Chest pain type: unspecified Qualified Code(s): R07.9 - Chest pain, unspecified <Yesenia Rico PA-C - Last Filed: 05/04/24 13:42> Patient Disposition: Home, Self-Care <Yesenia Rico PA-C - Last Filed: 05/04/24 13:42> Condition: Stable <Yesenia Rico PA-C - Last Filed: 05/04/24 13:42> Instructions: Chest Pain (ED) <Yesenia Rico PA-C - Last Filed: 05/04/24 13:42> Patient Language: [place] Citizen <Yesenia Rico PA-C - Last Filed: 05/04/24 13:42> Prescriptions: No Action ondansetron 4 mg tablet,disintegrating 4 mg PO Q8H PRN (Reason: nausea and vomiting) Qty: 12 0RF clindamycin HCl 300 mg capsule 300 mg PO Q6H 10 Days Qty: 40 0RF acetaminophen 500 mg capsule 1,000 mg PO Q6H PRN (Reason: pain) Qty: 20 0RF hydrocodone-acetaminophen 5-325 mg tablet 1 tablet PO Q8H PRN (Reason: pain) Qty: 10 0RF hydrocodone-acetaminophen 5-325 mg tablet 1 tablet PO Q8H PRN (Reason: pain) Qty: 10 0RF hydrochlorothiazide 25 mg tablet 25 mg PO DAILY lisinopril 20 mg tablet 20 mg PO DAILY <Yesenia Rico PA-C - Last Filed: 05/04/24 13:42> Follow-up/Referrals: UNKNOWN,DOCTOR [Primary Care Provider] - Vikas Michael MD [Physician] - <Yesenia Rico PA-C - Last Filed: 05/04/24 13:42>
[2024-05-04 14:00] LABS: Basophils Absolute Auto 0.1 K/mm3 (0.0-0.1); Eosinophils Absolute Auto 0.1 K/mm3 (0-0.3); Eosinophils Percent Auto 2.1 % (0-4.4); Hematocrit 45.2 % (42.0-52.0); Hemoglobin 15.8 g/dL (14.0-18.0); Lymphocytes Absolute Auto 3.89 K/mm3 (0.9-3.2); Lymphocytes Percent Auto 57.7 % (18.3-44.2); Mean Corpuscular Hemoglobin 31.4 pg (26-34); Mean Corpuscular Volume 89.9 fl (80-100); Mean Platelet Volume 9.1 fl (7.4-10.4); Monocytes Absolute Auto 0.6 K/mm3 (0.1-0.6); Monocytes Percent Auto 8.6 % (2.6-8.5); Neutrophils Absolute Auto 2.1 K/mm3 (1.3-6.7); Neutrophils Percent Auto 30.6 % (45.5-73.1); Platelet Count Result 264 k/mm3 (150-375); Red Blood Count 5.03 M/mm3 (4.6-6.20); Red Cell Distribution Width 12.5 % (11.5-14.5); White Blood Count 6.7 K/mm3 (4.5-10.0)
[2024-05-04 14:11] LABS: Prothrombin Time 13.2 Seconds (11.1-14.7)
[2024-05-04 14:12] LABS: Partial Thromboplastin Time 27.5 Seconds (22.3-36.8)
[2024-05-04 14:15] VITALS: BP 126/80; PULSE 66; RESP 16; TEMP 36.6; O2SAT 100
[2024-05-04 14:15] LABS: Alanine Aminotransferase 22 U/L (6-50); Albumin Level 4.8 g/dL (3.5-5.1); Alkaline Phosphatase 67 U/L (38-126); Anion Gap 12 mmol/L (4-12); Aspartate Amino Transferase 32 U/L (17-59); Bilirubin,Total 1.1 mg/dL (0.2-1.3); Blood Urea Nitrogen 12 mg/dL (9-20); Calcium 9.7 mg/dL (8.4-10.2); Carbon Dioxide 21 mmol/L (22-30); Chloride 104 mmol/L (98-107); Estimated CRCL calculation 100 ml/min; Estimated Glomerular Filt Rate > 60; Glucose 116 mg/dL (65-110); Lipase 68 U/L (23-300); Potassium 3.7 mmol/L (3.4-5.0); Sodium 137 mmol/L (137-145)
[2024-05-04 14:26] LABS: NT Pro B Type Natriuretic Pept < 20 pg/mL (19.9-100); Troponin I < 0.012 ng/mL (0.000-0.034)
[2024-05-04 15:01] VITALS: BP 119/79; PULSE 65; RESP 16; TEMP 36.6; O2SAT 100
[2024-05-04 16:00] VITALS: BP 122/68; PULSE 68; RESP 16; TEMP 36.7; O2SAT 100
--- NOTE | 2024-05-04 16:29 | ECG_ITS ---
Test Date: 2024-05-04 16:31:11 Measurements Intervals [place] Rate: 63 P: 29 ID: [id number] QRS: -40 QRSD: 104 T: -30 QT: 391 QTc: 401 Interpretive Statements SINUS RHYTHM LEFT AXIS DEVIATION [QRS AXIS < -30] VOLTAGE CRITERIA FOR LVH [MEETS CRITERIA IN ONE OF: R(aVL), S(V1), R(V5), R(V5/V6)+S(V1)] MODERATE T-WAVE ABNORMALITY, CONSIDER ANTEROLATERAL ISCHEMIA [-0.1+ mV T-WAVE IN V3-V6] Compared to ECG 05/04/2024 13:44:14 Possible ischemia now present T-wave abnormality still present Electronically Signed On 05-05-2024 09:17:09 PACKAGE REINSPECTOR by Tylor Albarado M.D.
[2024-05-04 16:55] VITALS: BP 126/80; PULSE 68; RESP 16; TEMP 36.6; O2SAT 100
[2024-05-04 17:21] LABS: Troponin I < 0.012 ng/mL (0.000-0.034)
[2024-05-04 18:00] VITALS: BP 126/68; PULSE 68; RESP 16; TEMP 36.6; O2SAT 98
== END 2024-05-04 18:02 | disposition home or self-care (01) ==
PROVIDERS: Emergency Medicine; Emergency Provider Family Medicine
DX: R07.9 Chest pain, unspecified (principal); F17.210 Nicotine dependence, cigarettes, uncomplicated; F12.90 Cannabis use, unspecified, uncomplicated
CPT/HCPCS: 36415; 71046; 80053; 83690; 83880; 84484; 85025; 85610; 85730; 93005; 99284

== ENCOUNTER 2024-10-22 09:35 | Emergency (ER) | payer MEDICAID, SELFPAY ==
--- NOTE | ~2024-10-22 | XR_ITS ---
HISTORY: twisted knee, anterior pain COMPARISON: None TECHNIQUE: 4 views of the left knee were performed FINDINGS: No acute or subacute fracture. Medial and lateral tibiofemoral joint space narrowing is identified with osteophytic ridging. Small suprapatellar joint effusion is identified. The infrapatellar joint space is clear. High riding patella is suspected IMPRESSION: Small suprapatellar joint effusion with patella aramis, as detailed above. Degenerative disease, without acute fracture. Reviewed, dictated and finalized at location A.
[2024-10-22 09:44] VITALS: BP 122/76; PULSE 76; RESP 20; TEMP 36.3; O2SAT 98
--- NOTE | 2024-10-22 09:51 | ED.LOWEXIN ---
HPI - Extremity Injury (Lower) General Chief Complaint: Extremity Injury, Lower Stated Complaint: Left Knee Pain Time Seen by Provider: 10/22/24 09:40 Source: patient Mode of arrival: ambulatory Limitations: no limitations History of Present Illness HPI Narrative: 29 yo M presents with c/o L knee pain. Reports chronic knee pain from old injury. Was told had torn meniscus in high school from football injury. could of had surgery but didn't. last night was running, stepped in pothole and now has increase pain to knee. ambulatory with limp. All systems reviewed and negative except as noted above. Related Data Home Medications ?Medication ?Instructions ?Recorded ?Confirmed ?Last Taken ?Type hydrochlorothiazide 25 mg tablet 25 mg PO DAILY 04/27/24 04/27/24 Unknown History amlodipine 10 mg tablet mg 10/22/24 Unknown History Allergies Allergy/AdvReac Type Severity Reaction Status Date / Time amoxicillin Allergy Unknown hives Verified 10/22/24 09:40 Penicillins Allergy Hives Verified 10/22/24 09:40 Review of Systems Review of Systems: CONSTITUTIONAL: Denies fever, chills, or sweats. EYES: Denies visual changes, redness, or discharge. ENT: Denies rhinorrhea, congestion, sore throat, or otalgia. CARDIOVASCULAR: Denies chest pain, palpitations, or edema. RESPIRATORY: Denies cough or dyspnea. GASTROINTESTINAL: Denies abdominal pain, nausea, vomiting, or diarrhea. GENITOURINARY: Denies dysuria or hematuria. SKIN: Denies rash or itching. MUSCULOSKELETAL: Denies back pain or myalgia. reports pain to L knee with swelling NEUROLOGIC: Denies headache, numbness, or weakness. PSYCHIATRIC: Denies anxiety or depression. All other systems reviewed are negative, except as documented in HPI. [facility] Past Medical History Medical History Heart murmur Surgical History Surgical History No pertinent past surgical history Family History Family History Mother Family history non-contributory Social History Social History Smoking status: Current every day smoker Tobacco type: e-cigarettes/vaping Alcohol intake: current Alcohol use details: 1/2 beer two days per week Substance use: current Substance use type: marijuana Gender identity (if verbalized by the patient): Male Sexual Orientation (if Verbalized by the Patient): Straight or Heterosexual Spiritual care concerns: No Comments At time of signature, agree with nursing past medical, surgical, social and family history. There is no relevant family history pertinent to the presenting complaint. Exam Narrative: GENERAL: This is a well-nourished, well-developed patient, in no apparent distress. HEAD: normocephalic, atraumatic. EYES: PERRL. Sclera clear/white. Vision is grossly intact. EARS: External ears normal NOSE: External nose normal NECK: Neck supple, non-tender without lymphadenopathy, masses or thyromegaly. CARDIOVASCULAR: Regular rate and rhythm without murmurs, gallops, or rubs. RESPIRATORY: Clear to auscultation. Breath sounds equal bilaterally. No wheezes, rales, or rhonchi. SKIN: warm, Dry, intact with no suspicious lesions or rash, good texture and turgor. NEURO: awake, alert, and oriented to person, place and time. There were no obvious focal neurologic abnormalities. EXTREMITIES: tenderness to posterior aspect and patella. mild swelling noted. extension decreased due to pain. negative anterior and posterior drawer testing. no medial or lateral tenderness. Course Course Level of Care: Express Care Visit Vital Signs Vital signs: Vital Signs Temperature 36.3 C L 10/22/24 09:44 Pulse Rate 76 10/22/24 09:44 Respiratory Rate 20 10/22/24 09:44 Blood Pressure 122/76 10/22/24 09:44 Pulse Oximetry 98 10/22/24 09:44 Oxygen Delivery Room Air 10/22/24 09:44 Temperature 36.3 C L 10/22/24 09:44 Pulse Rate 76 10/22/24 09:44 Respiratory Rate 20 10/22/24 09:44 Blood Pressure 122/76 10/22/24 09:44 Pulse Oximetry 98 10/22/24 09:44 Oxygen Delivery Room Air 10/22/24 09:44 Reviewed MDM - Extremity Injury (Lower) MDM Narrative Medical decision making narrative: discussed x-ray results with patient. Patient place in Jacob wrap and given crutches. Refer to orthopedics for follow-up. Imaging Data My impression: agree with radiologist Radiologist's impression: HISTORY: twisted knee, anterior pain COMPARISON: None TECHNIQUE: 4 views of the left knee were performed FINDINGS: No acute or subacute fracture. Medial and lateral tibiofemoral joint space narrowing is identified with osteophytic ridging. Small suprapatellar joint effusion is identified. The infrapatellar joint space is clear. High riding patella is suspected IMPRESSION: Small suprapatellar joint effusion with patella aramis, as detailed above. Degenerative disease, without acute fracture. Discharge Plan Discharge Clinical Impression: Knee effusion, left, Patella aramis Patient Disposition: Home Condition: Stable Instructions: Antibiotic Form Additional Instructions: Follow up with retail account specialist for further evaluation of knee pain. Patient Language: [place] Prescriptions: No Action amlodipine 10 mg tablet hydrochlorothiazide 25 mg tablet 25 mg PO DAILY Follow-up/Referrals: Chacorta Allen MD [Physician] - (follow up with orthopedics) PHYSICIAN,FINANCIAL REPORT SERVICE SALES AGENT [Primary Care Provider] - Stand Alone Forms: Work/School Release IP Time of Disposition: 10:29
== END 2024-10-22 10:43 | disposition home or self-care (01) ==
PROVIDERS: Emergency Provider Nurse Practitioner Family
DX: M25.462 Effusion, left knee (principal); M22.8X2 Other disorders of patella, left knee; F17.290 Nicotine dependence, other tobacco product, uncomplicated; R01.1 Cardiac murmur, unspecified
CPT/HCPCS: 73564; 99213; G0463